=== PATIENT | female | born 1965 | race Two or more races ===

== ENCOUNTER 2024-04-13 20:43 | Emergency (ER) | payer OTHER ==
[~2024-04-13] VITALS: Ht 149.9 cm; Wt 62.9 kg
[2024-04-13 21:45] VITALS: BP 145/91; PULSE 75; RESP 18; TEMP 98.2; O2SAT 97
[2024-04-13] MEDS: DexAMETHasone SOD PHOS 10MG/1ML VIAL INJ IM ONE (22:14)
[2024-04-13] MEDS: KETOROLAC TROMETH 60MG/2ML VIAL IM ONE (22:14)
[2024-04-13] MEDS ORDERED: METH-1181 PO (23:04)
[2024-04-13] MEDS ORDERED: IBUP-1456 PO (23:04)
== END 2024-04-13 23:15 | disposition home or self-care (01) ==
LOC: ER 20:43
DX: S13.4XXA Sprain of ligaments of cervical spine, initial encounter (principal); S00.03XA Contusion of scalp, initial encounter; G44.309 Post-traumatic headache, unspecified, not intractable; Y04.8XXA Assault by other bodily force, initial encounter; Y93.89 Activity, other specified; Y92.89 Other specified places as the place of occurrence of the external cause; Y99.8 Other external cause status
CPT/HCPCS: 70450; 72125; 96372; 99285; J1100; J1885